=== PATIENT | female | born 1930 | race Caucasian/White ===

== ENCOUNTER 2018-01-16 12:45 | Inpatient (IN) | payer MEDICARE, OTHER ==
[~2018-01-16] VITALS: Ht 162.6 cm; Wt 51.1 kg
[~2018-01-16 12:45] MED LIST: ACET325T9 PO; ACET500T68 PO; ALBU1.25 NEB; BIOF1TAB PO; CALC-326 PO; CARV25TA PO; CLON0.1T PO; DOCU-109 PO; FAMO-63 PO; IBUP200T44 PO; LIDO700A4 TP; LIDODERM PATCH; LINA145C PO; LISI-334 PO; MAG355OR17 PO; MAGN400O7 PO; PROM12.56 PO; PSYL0.5215 PO; PSYL3.4P PO; RANI300T3 PO; RISP0.2519 PO; SERT25TA4 PO; SIMV20TA3 PO; TRIM100T13 PO; VIT1CAPS12 PO; VIT1CAPS17 PO; WARF3TAB50 PO; WARF4TAB64 PO
[2018-01-16 12:46] VITALS: BP 173/84
[2018-01-16] MEDS ORDERED: RISP1TAB3 PO (13:30)
[2018-01-16] MEDS ORDERED: CHOL10003 PO (13:30)
[2018-01-16] MEDS ORDERED: LEVO50TA5 PO (13:30)
[2018-01-16] MEDS ORDERED: WARF-31 PO (13:30)
[2018-01-16] MEDS ORDERED: ONDANSETRON ODT 4 MG TAB.RAPDIS PO PRN (14:00)
[2018-01-16] MEDS ORDERED: ACETAMINOPHEN 500 MG TABLET PO PRN (14:00)
[2018-01-16] MEDS: cefTRIAXone IV Push 1 GM VIAL. IVP SCH (14:26)
[2018-01-16] MEDS: IV NORMAL SALINE 1,000ML 1,000 ML IV SCH (14:26)
[2018-01-16 14:42] LABS: BASO % 1 % (0-3); EOS # 0.1 x10^3/uL (0.0-0.7); EOS % 3 % (0-3); HEMATOCRIT 39.4 % (36.0-47.0); HEMOGLOBIN 13.4 g/dL (12.0-15.5); LYMPH # 0.9 x10^3/uL (1.0-4.8); LYMPH % 22 % (24-48); MEAN CORPUSCULAR HEMOGLOBIN 32 pg (25-35); MEAN CORPUSCULAR HGB CONC 34 g/dL (31-37); MEAN CORPUSCULAR VOLUME 95 fL (79-100); MONO # 0.4 x10^3/uL (0.0-1.1); MONO % 10 % (0-9); NEUT # 2.7 x10^3uL (1.8-7.7); NEUT % 64 % (31-73); PLATELET COUNT 177 x10^3/uL (140-400); RED BLOOD COUNT 4.14 x10^6/uL (3.50-5.40); RED CELL DISTRIBUTION WIDTH 13.6 % (11.5-14.5); WHITE BLOOD COUNT 4.2 x10^3/uL (4.0-11.0)
[2018-01-16] MEDS ORDERED: SENN8.6T99 PO (14:56)
[2018-01-16] MEDS ORDERED: CALC200T3 PO (14:56)
[2018-01-16] MEDS ORDERED: RANI150T21 PO (14:56)
[2018-01-16] MEDS ORDERED: CALC625T PO (14:56)
[2018-01-16 15:16] LABS: ALBUMIN 3.1 g/dL (3.4-5.0); ALBUMIN/GLOBULIN RATIO 0.9 (1.0-1.7); CALCIUM 9.4 mg/dL (8.5-10.1); CREATININE 1.2 mg/dL (0.6-1.0); GFR 42.3; POTASSIUM 4.1 mmol/L (3.5-5.1); TOTAL BILIRUBIN 0.5 mg/dL (0.2-1.0); TOTAL PROTEIN 6.4 g/dL (6.4-8.2)
[2018-01-16] MEDS ORDERED: NON FORMULARY ITEM (Albuterol Sulfate (Albuterol Sulfate Neb Soln) 2.5 MG) NEB PRN (15:45)
[2018-01-16] MEDS ORDERED: IV NORMAL SALINE 1,000ML 1,000 ML IV SCH (15:45)
[2018-01-16] MEDS ORDERED: CALCIUM CARBONATE 500 MG TAB.CHEW PO PRN (15:45)
[2018-01-16] MEDS ORDERED: ACETAMINOPHEN 325 MG TABLET PO PRN (15:45)
[2018-01-16] MEDS ORDERED: MAGNESIUM HYDROXIDE 2,400 MG/30 ML ORAL.SUSP. PO PRN (15:45)
[2018-01-16 15:56] VITALS: BP 145/73
[2018-01-16] MEDS ORDERED: ALBUTEROL SULFATE 2.5 MG/3 ML NEBU. NEB PRN (16:00)
[2018-01-16] MEDS ORDERED: MAG HYDROX/AL HYDROX/SIMETH 30 ML ORAL.SUSP PO PRN (16:00)
[2018-01-16 16:10] LABS: BACTERIA,URINE FEW /HPF (0-FEW); BILIRUBIN,URINE NEG (NEG); CLARITY,URINE HAZY; COLOR,URINE YELLOW; GLUCOSE,URINE NEG (NEG); NITRITE,URINE NEG (NEG); SQUAMOUS EPITHELIAL CELL,UR OCC /LPF; UROBILINOGEN,URINE 0.2 mg/dL (0.2 mg/dL)
--- NOTE | 2018-01-16 16:24 | RAD ---
EXAM: Chest, 2 views. HISTORY: Weakness. Shortness of breath. COMPARISON: 12/11/2013 FINDINGS: Frontal and lateral views of the chest are obtained. There is increased left greater than right basilar opacity likely due to atelectasis. There is no pleural effusion. There is emphysema. There is no pneumothorax. There is a stable prominent cardiac silhouette. There is a chronic severe L1 compression fracture. IMPRESSION: 1. Suspected left lower lobe atelectasis. The possibility of left basilar interstitial infiltrate is not excluded. 2. Stable prominent cardiac silhouette. Electronically signed by: Elis Barton MD (01/16/2018 4:21 PM) [place] [id number]
[2018-01-16] MEDS ORDERED: WARFARIN 5 MG TABLET. PO SCH (16:30)
--- NOTE | 2018-01-16 16:32 | RAD ---
CT of the abdomen and pelvis without contrast, 01/16/2018: HISTORY: Abdominal pain, weakness, UTI Multidetector CT imaging was performed without oral or IV contrast. This limits evaluation of the abdominal structures. There are mild bibasilar interstitial opacities, likely due to scarring. Active infiltrate cannot be excluded. There is a trace amount of pleural fluid in the posterior costophrenic angle on the left. The gallbladder is surgically absent. The unopacified liver shows no abnormality. The hyperenhancing left lobe lesion seen on the previous study is not visible on this noncontrast exam. The common bile duct is dilated, likely secondary to the postcholecystectomy state. A similar appearance was evident on the 12/11/2013 exam. No pancreatic abnormality is seen. The spleen is of normal size. The right kidney is malrotated. It contains a 4.4 cm cyst posteriorly. There are several other small bilateral renal cysts, better delineated on the previous postcontrast study. The kidneys show no evidence of obstruction. Moderate aortoiliac calcific plaquing is present no abdominal or pelvic adenopathy is seen. The uterus appears to be surgically absent. Colonic diverticula are present, most numerous in the sigmoid region. There is a moderate amount stool in the distal colon. No paracolonic inflammatory process is seen. No free air or free fluid is evident in the abdomen or pelvis. There is an old L1 vertebral compression fracture with mild unchanged retropulsion of the posterior superior corner of the fracture vertebral body. Moderate scattered degenerative changes are evident. IMPRESSION: 1. Colonic diverticulosis, most extensive in the sigmoid region. 2. Bilateral renal cysts. 3. Old L1 vertebral compression fracture. PQRS Compliance Statement: One or more of the following individualized dose reduction techniques were utilized for this examination: 1. Automated exposure control 2. Adjustment of the mA and/or kV according to patient size 3. Use of iterative reconstruction technique Electronically signed by: Gallito Silva MD (01/16/2018 4:28 PM) [facility]
--- NOTE | 2018-01-16 16:33 | EKG ---
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
[2018-01-16 19:58] VITALS: BP 125/66
[2018-01-16] MEDS: SIMVASTATIN 20 MG TABLET PO SCH (20:22)
[2018-01-16] MEDS: CALCIUM POLYCARBOPHIL 625 MG TABLET PO SCH (20:22)
[2018-01-16] MEDS: risperiDONE 1 MG TABLET. PO SCH (20:22)
[2018-01-16] MEDS: CARVEDILOL 12.5 MG TABLET PO SCH (20:23)
[2018-01-16] MEDS ORDERED: FAMOTIDINE 20 MG TABLET PO PRN (21:00)
[2018-01-17] VITALS (9 sets, daily range): BP systolic 126–198; BP diastolic 64–98
[2018-01-17] MEDS ORDERED: hydrALAZINE 20 MG/ML VIAL. IV ONE (00:45)
[2018-01-17] MEDS ORDERED: hydrALAZINE 10 MG TABLET PO ONE ×2 (01:30→03:00)
[2018-01-17] MEDS: IV NORMAL SALINE 1,000ML 1,000 ML IV SCH ×2 (03:20→16:40)
[2018-01-17] MEDS: LEVOTHYROXINE 50 MCG TABLET PO SCH (05:47)
[2018-01-17] MEDS ORDERED: cloNIDine TTS-2 1 PATCH PATCH TD ONE (06:00)
[2018-01-17 06:39] LABS: BASO % 1 % (0-3); EOS # 0.1 x10^3/uL (0.0-0.7); EOS % 2 % (0-3); HEMATOCRIT 37.9 % (36.0-47.0); LYMPH # 1.1 x10^3/uL (1.0-4.8); LYMPH % 18 % (24-48); MEAN CORPUSCULAR HEMOGLOBIN 32 pg (25-35); MEAN CORPUSCULAR HGB CONC 34 g/dL (31-37); MEAN CORPUSCULAR VOLUME 94 fL (79-100); MONO # 0.6 x10^3/uL (0.0-1.1); MONO % 9 % (0-9); NEUT # 4.4 x10^3uL (1.8-7.7); NEUT % 71 % (31-73); PLATELET COUNT 181 x10^3/uL (140-400); RED BLOOD COUNT 4.02 x10^6/uL (3.50-5.40); RED CELL DISTRIBUTION WIDTH 13.3 % (11.5-14.5); WHITE BLOOD COUNT 6.2 x10^3/uL (4.0-11.0)
[2018-01-17 06:54] LABS: CALCIUM 8.9 mg/dL (8.5-10.1); GFR 52.2; POTASSIUM 3.8 mmol/L (3.5-5.1)
[2018-01-17] MEDS: CALCIUM CARB/VIT D3 500/200 TABLET PO SCH (08:45)
[2018-01-17] MEDS: LINACLOTIDE 145 MCG CAPSULE. PO SCH (08:45)
[2018-01-17] MEDS: CHOLECALCIFEROL (VITAMIN D3) 1,000 UNIT TABLET PO SCH (08:45)
[2018-01-17] MEDS: MULTIVITAMIN I-VITE TABLET. PO SCH (08:45)
[2018-01-17] MEDS: SENNOSIDES 8.6 MG TABLET PO SCH (08:45)
[2018-01-17] MEDS: CARVEDILOL 12.5 MG TABLET PO SCH (08:50)
[2018-01-17] MEDS ORDERED: cloNIDine TTS-2 1 PATCH PATCH TD SCH (09:00)
--- NOTE | 2018-01-17 09:20 | RAD ---
CT HEAD INDICATION: ALTERED MENTAL STATUS COMPARISON: 12/11/2013 TECHNIQUE: 5 mm contiguous axial images were obtained from the skull base to the vertex in both bone and soft tissue algorithm. Exposure: One or more of the following individualized dose reduction techniques were utilized for this examination: 1. Automated exposure control 2. Adjustment of the mA and/or kV according to patient size 3. Use of iterative reconstruction technique FINDINGS: Moderate bilateral periventricular white matter hypodensities likely chronic small vessel ischemic disease. No evidence of acute intracranial hemorrhage. No extra-axial fluid collections. No mass effect or midline shift. Ventricular size is appropriate. Basal cisterns are patent. No fractures identified.Camacho-white differentiation is preserved.Globes and orbits are within normal limits. Paranasal sinuses and mastoid air cells are clear. IMPRESSION: No acute intracranial findings. Electronically signed by: Dakota Greene MD (01/17/2018 9:16 AM) [id number]
[2018-01-17] MEDS ORDERED: WARFARIN 4 MG TABLET. PO SCH (16:00)
[2018-01-17] MEDS: cefTRIAXone IV Push 1 GM VIAL. IVP SCH (16:51)
--- NOTE | 2018-01-17 19:24 | EKG ---
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
[2018-01-17] MEDS: METOPROLOL TART IMMED RELEASE 25 MG TABLET PO SCH ×3 (19:48→20:30)
[2018-01-17] MEDS: SIMVASTATIN 20 MG TABLET PO SCH (20:30)
[2018-01-17] MEDS: CALCIUM POLYCARBOPHIL 625 MG TABLET PO SCH (20:30)
[2018-01-17] MEDS: risperiDONE 1 MG TABLET. PO SCH (20:30)
[2018-01-17] MEDS ORDERED: METOPROLOL TARTRATE 5 MG/5 ML VIAL. IV ONE ×2 (20:30→22:15)
--- NOTE | 2018-01-18 01:12 | PN ---
DATE: 01/17/2018 SUBJECTIVE: An 87-year-old female who came in with change in mental status, confusion. The patient is resting fairly comfortably, having trouble eating, adjusting her protime as well. However, the patient is still very weak, albumin low at 3.1. The patient's otherwise UA is still pending for evaluation. As far as the culture grows, did have some pus cells in it as well. We will continue on IV antibiotic therapy. PHYSICAL EXAMINATION: GENERAL: Otherwise, the patient is alert, slightly confused, more so than usual. Does not seem to be her usual self, seems to be decreased in mentation. LUNGS: Diminished throughout, but clear. CARDIOVASCULAR: Irregular regular rhythm. ABDOMEN: Soft, nontender. DIAGNOSTIC STUDIES: CT scan unremarkable. PLAN: Continue to monitor the patient, accordingly make further evaluation on her as indicated and we may need a Psych consult as well. FREDDIE REEVES MD DR: AALIYAH/leticia JOB#: [id number] / [id number]
[2018-01-18 05:03] VITALS: BP 182/94
[2018-01-18] MEDS: LEVOTHYROXINE 50 MCG TABLET PO SCH ×2 (06:00→06:09)
[2018-01-18] MEDS: IV NORMAL SALINE 1,000ML 1,000 ML IV SCH (06:00)
[2018-01-18 06:10] VITALS: BP 182/94
[2018-01-18] MEDS: METOPROLOL TART IMMED RELEASE 25 MG TABLET PO SCH (06:10)
[2018-01-18] MEDS: CALCIUM CARB/VIT D3 500/200 TABLET PO SCH (08:00)
[2018-01-18] MEDS: LINACLOTIDE 145 MCG CAPSULE. PO SCH (08:36)
[2018-01-18] MEDS: MULTIVITAMIN I-VITE TABLET. PO SCH (08:36)
[2018-01-18] MEDS: SENNOSIDES 8.6 MG TABLET PO SCH (08:36)
[2018-01-18] MEDS: CHOLECALCIFEROL (VITAMIN D3) 1,000 UNIT TABLET PO SCH ×2 (08:37→08:38)
[2018-01-18] MEDS ORDERED: LACTOBACILLUS RHAMNOSUS GG 1 CAPSULE. PO SCH (09:00)
--- NOTE | 2018-01-18 09:34 | PDOC2 ---
CARDIAC CONSULT DATE OF CONSULT Date Of Consult DATE: 01/18/18 TIME: 09:22 REASON FOR CONSULT Reason for Consult Abnormal ECG, hypertension REFERRING PHYSICIAN Referring Physician Roberto Knox MD HPI History of Present Illness Ms. Tyson is a very pleasant 87-year-old female who is well known to me. I initially had the opportunity to meet the patient in my office earlier this year. She did follow with Dr. Joseluis Horton previously. The patient does have a history of paroxysmal atrial fibrillation which has been managed with a rate control strategy using carvedilol, as well as chronic anticoagulation with warfarin. She does have a history of TIA, essential hypertension, mixed hyperlipidemia, gastroesophageal reflux disease, and hypothyroidism on thyroid replacement therapy. Patient does have chronic kidney disease stage 3. The patient is currently hospitalized after presenting with mental status changes and confusion. She has been relatively anxious during her hospitalization. The patient has been noted to be hypertensive this morning, and was noted to have an abnormal ECG. I reviewed her ECG this morning which demonstrated a run of atrial fibrillation with ventricular rates that were relatively controlled. She has not had any any recent episodes of chest pains or shortness of breath, palpitations, lightheadedness, or syncope. Her workup for ACS with an initial troponin was negative, and ECG has not demonstrated any significant ischemic changes. The patient is otherwise doing well today and has no other particular complaints. PAST MEDICAL HISTORY Cardiovascular: AFIB, HTN, hyperipidemia GI: GERD Psych: Anxiety PAST SURGICAL HISTORY Past Surgical History Noncontributory FAMILY HISTORY Family History Noncontributory SOCIAL HISTORY Smoke: No ALCOHOL: none Drugs: None Lives: Shelter CURRENT MEDICATIONS Current Medications Current Medications Sodium Chloride 1,000 ml @ 75 mls/hr [id number] IV Last administered on at 03:20; Start 01/16/18 at 14:00 Acetaminophen (Tylenol) 500 mg PRN Q6HRS PRN PO PAIN / TEMP; Start 01/16/18 at 14:00; Stop 01/16/18 at 15:40; Status DC Ceftriaxone Sodium 1 gm/ Sodium Chloride 50 ml @ 100 mls/hr Q24H IV ; Start at 14:00; Status UNV Ondansetron HCl (Zofran Odt) 4 mg PRN Q8HRS PRN PO NAUSEA/VOMITING; Start 01/16 at 14:00 Ceftriaxone Sodium (Rocephin) 1 gm Q24H IVP Last administered on 01/17/18at 16: 51; Start 01/16/18 at 15:00 Acetaminophen (Tylenol) 650 mg PRN Q6HRS PRN PO PAIN; Start 01/16/18 at 15:45 Calcium Carbonate/ Glycine (Tums) 500 mg PRN Q2HR PRN PO ACID INDIGESTION; Start 01/16/18 at 15:45 Calcium Polycarbophil (Fibercon) 625 mg HS PO Last administered on 01/16/18at 20 :22; Start 01/16/18 at 21:00 Vitamin D (Vitamin D3) 1,000 unit DAILY PO Last administered on 01/17/18at 08:45 ; Start 01/17/18 at 09:00 Linaclotide (Linzess) 145 mcg DAILY PO Last administered on 01/17/18at 08:45; Start 01/17/18 at 09:00 Magnesium Hydroxide (Milk Of Magnesia) 2,400 mg PRN DAILY PRN PO CONSTIPATION; Start 01/16/18 at 15:45 Non-Formulary Medication (Albuterol Sulfate (Albuterol Sulfate Neb Soln)) 2.5 mg PRN Q4HRS PRN NEB SHORTNESS OF BREATH; Start 01/16/18 at 15:45; Status UNV Calcium/Vitamin D (Oscal D 500mg/ 200uts) 1 tab [id number] PO Last administered on 01/17/18at 08:45; Start 01/17/18 at 08:00 Carvedilol (Coreg) 25 mg BID@1300,2100 PO Last administered on 01/17/18at 08:50 ; Start 01/16/18 at 21:00; Stop 01/17/18 at 19:29; Status DC Levothyroxine Sodium (Synthroid) 50 mcg DAILY06 PO Last administered on at 05:47; Start 01/17/18 at 06:00 Al Hydroxide/Mg Hydroxide (Mylanta Plus Xs) 15 ml PRN AFTMEALHC PRN PO DYSPEPSIA; Start 01/16/18 at 16:00 Famotidine (Pepcid) 20 mg PRN BID PRN PO INDIGESTION; Start 01/16/18 at 21:00 Risperidone (RisperDAL) 1 mg QHS PO Last administered on 01/16/18at 20:22; Start 01/16/18 at 21:00 Sennosides (Senna) 8.6 mg DAILY PO Last administered on 01/17/18at 08:45; Start 01/17/18 at 09:00 Simvastatin (Zocor) 20 mg HS PO Last administered on 01/16/18at 20:22; Start at 21:00 Multivitamins/ Minerals (I-Jimbo) 1 tab DAILY PO Last administered on 01/17/18at 08:45; Start 01/17/18 at 09:00 Warfarin Sodium (Coumadin) 5 mg DAILY16 PO Last administered on 01/16/18at 20:23 ; Start 01/16/18 at 16:30; Stop 01/17/18 at 13:01; Status DC Sodium Chloride 1,000 ml @ 75 mls/hr [id number] IV ; Start 01/16/18 at 15:45; Status Cancel Albuterol Sulfate (Ventolin) 2.5 mg PRN Q4HRS PRN NEB SHORTNESS OF BREATH; Start 01/16/18 at 16:00 Warfarin Sodium (Coumadin Per Physician) 1 each PRN DAILY PRN MC SEE COMMENTS; Start 01/16/18 at 16:30 Hydralazine HCl (Apresoline) 20 mg 1X ONCE IV ; Start 01/17/18 at 00:45; Stop 01/17/18 at 00:46; Status DC Hydralazine HCl (Apresoline) 20 mg 1X ONCE PO Last administered on 01/17/18at 01:25; Start 01/17/18 at 01:30; Stop 01/17/18 at 01:31; Status DC Hydralazine HCl (Apresoline) 20 mg 1X ONCE PO Last administered on 01/17/18at 03:04; Start 01/17/18 at 03:00; Stop 01/17/18 at 03:01; Status DC Clonidine HCl (Catapres Tts-2) 1 patch WEEKLY TD ; Start 01/17/18 at 09:00; Stop 01/17/18 at 09:00; Status DC Clonidine HCl (Catapres Tts-2) 1 patch WEEKLY TD ; Start 01/24/18 at 09:00 Clonidine HCl (Catapres Tts-2) 1 patch ONCE ONCE TD Last administered on at 06:07; Start 01/17/18 at 06:00; Stop 01/17/18 at 06:01; Status DC Warfarin Sodium (Coumadin) 4 mg DAILY16 PO Last administered on 01/17/18at 16:57 ; Start 01/17/18 at 16:00 Metoprolol Tartrate (Lopressor) 25 mg BID PO Last administered on 01/18/18at 06: 10; Start 01/17/18 at 19:30 Metoprolol Tartrate (Lopressor Vial) 5 mg 1X ONCE IV Last administered on 01/17at 20:40; Start 01/17/18 at 20:30; Stop 01/17/18 at 20:35; Status DC Metoprolol Tartrate (Lopressor Vial) 5 mg 1X ONCE IV Last administered on 01/17at 22:19; Start 01/17/18 at 22:15; Stop 01/17/18 at 22:17; Status DC Lactobacillus Rhamnosus (Culturelle) 1 cap BID PO ; Start 01/18/18 at 09:00 Active Scripts Active Reported Zantac (Ranitidine Hcl) 150 Mg Tablet 1 Tab PO BID PRN LAST DOSE GIVEN: DATE: TIME: NEXT DOSE DUE: DATE: TIME: Tums (Calcium Carbonate) 200 Mg Tab.chew 200 Mg PO Q2HR PRN LAST DOSE GIVEN: DATE: TIME: NEXT DOSE DUE: DATE: TIME: Senokot (Sennosides) 8.6 Mg Tablet 1 Tab PO DAILY LAST DOSE GIVEN: DATE: TIME: NEXT DOSE DUE: DATE: TIME: Fibercon (Calcium Polycarbophil) 625 Mg Tablet 625 Mg PO HS LAST DOSE GIVEN: DATE: TIME: NEXT DOSE DUE: DATE: TIME: Warfarin Sodium 5 Mg Tablet 1 Tab PO DAILY LAST DOSE GIVEN: DATE: TIME: NEXT DOSE DUE: DATE: TIME: Risperidone 1 Mg Tablet 1 Tab PO QHS LAST DOSE GIVEN: DATE: TIME: NEXT DOSE DUE: DATE: TIME: Vitamin D3 (Cholecalciferol (Vitamin D3)) 1,000 Unit Tablet 1 Tab PO DAILY LAST DOSE GIVEN: DATE: TIME: NEXT DOSE DUE: DATE: TIME: Levothyroxine Sodium 50 Mcg Tablet 1 Tab PO DAILY06 LAST DOSE GIVEN: DATE: TIME: NEXT DOSE DUE: DATE: TIME: Preservision Areds Softgel (Vit A/Vit C/Vit E/Zinc/Copper) 1 Each Capsule 1 Each PO DAILY LAST DOSE GIVEN: DATE: TIME: NEXT DOSE DUE: DATE: TIME: Advanced Antacid Liquid (Mag Hydrox/Al Hydrox/Simeth) 355 Ml Oral.susp 15 Ml PO PRN AFTMEALHC PRN LAST DOSE GIVEN: DATE: TIME: NEXT DOSE DUE: DATE: TIME: Tylenol (Acetaminophen) 325 Mg Tablet 650 Mg PO Q6HRS PRN LAST DOSE GIVEN: DATE: TIME: NEXT DOSE DUE: DATE: TIME: Milk Of Magnesia (Magnesium Hydroxide) 400 Mg/5 Ml Oral.susp 2,400 Mg PO DAILY PRN LAST DOSE GIVEN: DATE: TIME: NEXT DOSE DUE: DATE: TIME: Linzess (Linaclotide) 145 Mcg Capsule 145 Mcg PO DAILY LAST DOSE GIVEN: DATE: TIME: NEXT DOSE DUE: DATE: TIME: Simvastatin 20 Mg Tablet 20 Mg PO HS LAST DOSE GIVEN: DATE: TIME: NEXT DOSE DUE: DATE: TIME: Albuterol Sulfate Neb Soln (Albuterol Sulfate) 1.25 Mg/3 Ml Vial.neb 2.5 Mg NEB PRN Q4HRS PRN LAST DOSE GIVEN: DATE: TIME: NEXT DOSE DUE: DATE: TIME: Coreg (Carvedilol) 25 Mg Tablet 25 Mg PO BID AT 1300 AND 2100 LAST DOSE GIVEN: DATE: TIME: NEXT DOSE DUE: DATE: TIME: Oyster Shell Calcium + D Tab (Calcium Carbonate/Vitamin D3) 1 Each Tablet 1 Each PO DAILY LAST DOSE GIVEN: DATE: TIME: NEXT DOSE DUE: DATE: TIME: ALLERGIES Allergies: Coded Allergies: alendronate sodium (Verified Allergy, Unknown, 12/17/13) fentanyl (Verified Allergy, Unknown, 12/17/13) ibandronate sodium (Verified Allergy, Unknown, 12/17/13) risedronate sodium (Verified Allergy, Unknown, 12/17/13) sulfamethoxazole (Verified Allergy, Unknown, 12/03/13) ROS Review of Systems Pt is relatively confused, not able to provide appropriate ROS PHYSICAL EXAM General: Alert, Cooperative, No acute distress, Other (not oriented to place or time) HEENT: Atraumatic, PERRLA, EOMI Lungs: Clear to auscultation, Normal air movement Heart: Regular rate, Normal S1, Normal S2, No murmurs Abdomen: Normal bowel sounds, Soft, No tenderness Extremities: No clubbing, No cyanosis, No edema, Normal pulses Skin: No rashes Neuro: Normal tone Psych/Mental Status: Other (dementia) VITALS Vital Signs Vital Signs Date Time Temp Pulse Resp B/P (MAP) Pulse Ox O2 Delivery O2 Flow Rate FiO2 01/18/18 06:10 71 182/94 01/18/18 05:03 98.0 18 97 Room Air LABS LABS Laboratory Tests Test 01/16/18 14:30 01/16/18 14:35 01/16/18 15:43 01/16/18 16:10 White Blood Count 4.2 x10^3/uL (4.0-11.0) Red Blood Count 4.14 x10^6/uL (3.50-5.40) Hemoglobin 13.4 g/dL (12.0-15.5) Hematocrit 39.4 % (36.0-47.0) Mean Corpuscular Volume 95 fL (79-100) Mean Corpuscular Hemoglobin 32 pg (25-35) Mean Corpuscular Hemoglobin Concent 34 g/dL (31-37) Red Cell Distribution Width 13.6 % (11.5-14.5) Platelet Count 177 x10^3/uL (140-400) Neutrophils (%) (Auto) 64 % (31-73) Lymphocytes (%) (Auto) 22 % (24-48) Monocytes (%) (Auto) 10 % (0-9) Eosinophils (%) (Auto) 3 % (0-3) Basophils (%) (Auto) 1 % (0-3) Neutrophils # (Auto) 2.7 x10^3uL (1.8-7.7) Lymphocytes # (Auto) 0.9 x10^3/uL (1.0-4.8) Monocytes # (Auto) 0.4 x10^3/uL (0.0-1.1) Eosinophils # (Auto) 0.1 x10^3/uL (0.0-0.7) Basophils # (Auto) 0.0 x10^3/uL (0.0-0.2) Prothrombin Time 28.7 SEC (9.4-11.4) Prothromb Time International Ratio 3.0 (0.9-1.1) Sodium Level 134 mmol/L (136-145) Potassium Level 4.1 mmol/L (3.5-5.1) Chloride Level 101 mmol/L (98-107) Carbon Dioxide Level 31 mmol/L (21-32) Anion Gap 2 (6-14) Blood Urea Nitrogen 15 mg/dL (7-20) Creatinine 1.2 mg/dL (0.6-1.0) Estimated GFR (Cockcroft-Gault) 42.3 BUN/Creatinine Ratio 13 (6-20) Glucose Level 115 mg/dL (70-99) Calcium Level 9.4 mg/dL (8.5-10.1) Total Bilirubin 0.5 mg/dL (0.2-1.0) Aspartate Amino Transf (AST/SGOT) 23 U/L (15-37) Alanine Aminotransferase (ALT/SGPT) 17 U/L (14-59) Alkaline Phosphatase 58 U/L (46-116) Total Protein 6.4 g/dL (6.4-8.2) Albumin 3.1 g/dL (3.4-5.0) Albumin/Globulin Ratio 0.9 (1.0-1.7) D-Dimer (Frida) 0.33 mg/L (0.00-0.50) Creatine Kinase 60 U/L (26-192) Troponin I Quantitative < 0.017 ng/mL (0-0.055) Urine Collection Type Unknown Urine Color Yellow Urine Clarity Hazy Urine pH 6.5 Urine Specific [place] 1.010 Urine Protein Neg (NEG-TRACE) Urine Glucose (UA) Neg mg/dL (NEG) Urine Ketones (Stick) Neg mg/dL (NEG) Urine Blood Trace (NEG) Urine Nitrite Neg (NEG) Urine Bilirubin Neg (NEG) Urine Urobilinogen Dipstick 0.2 mg/dL (0.2 mg/dL) Urine Leukocyte Esterase Trace (NEG) Urine RBC 3-5 /HPF (0-2) Urine WBC 1-4 /HPF (0-4) Urine Squamous Epithelial Cells Occ /LPF Urine Bacteria Few /HPF (0-FEW) Urine Mucus Slight /LPF Lactic Acid Level 0.7 mmol/L (0.4-2.0) Test 01/17/18 06:20 White Blood Count 6.2 x10^3/uL (4.0-11.0) Red Blood Count 4.02 x10^6/uL (3.50-5.40) Hemoglobin 13.0 g/dL (12.0-15.5) Hematocrit 37.9 % (36.0-47.0) Mean Corpuscular Volume 94 fL (79-100) Mean Corpuscular Hemoglobin 32 pg (25-35) Mean Corpuscular Hemoglobin Concent 34 g/dL (31-37) Red Cell Distribution Width 13.3 % (11.5-14.5) Platelet Count 181 x10^3/uL (140-400) Neutrophils (%) (Auto) 71 % (31-73) Lymphocytes (%) (Auto) 18 % (24-48) Monocytes (%) (Auto) 9 % (0-9) Eosinophils (%) (Auto) 2 % (0-3) Basophils (%) (Auto) 1 % (0-3) Neutrophils # (Auto) 4.4 x10^3uL (1.8-7.7) Lymphocytes # (Auto) 1.1 x10^3/uL (1.0-4.8) Monocytes # (Auto) 0.6 x10^3/uL (0.0-1.1) Eosinophils # (Auto) 0.1 x10^3/uL (0.0-0.7) Basophils # (Auto) 0.0 x10^3/uL (0.0-0.2) Prothrombin Time 30.6 SEC (9.4-11.4) Prothromb Time International Ratio 3.2 (0.9-1.1) Sodium Level 134 mmol/L (136-145) Potassium Level 3.8 mmol/L (3.5-5.1) Chloride Level 103 mmol/L (98-107) Carbon Dioxide Level 25 mmol/L (21-32) Anion Gap 6 (6-14) Blood Urea Nitrogen 17 mg/dL (7-20) Creatinine 1.0 mg/dL (0.6-1.0) Estimated GFR (Cockcroft-Gault) 52.2 Glucose Level 104 mg/dL (70-99) Calcium Level 8.9 mg/dL (8.5-10.1) EKG EKG ECG yesterday demonstrated atrial fibrillation with controlled ventricular rates ASSESSMENT/PLAN Assessment/Plan 1. Paroxysmal atrial fibrillation 2. Essential hypertension 3. History of TIA 4. Hypothyroidism 5. GERD 6. Abnormal ECG 7. Confusion/Anxiety Ms. Tyson is currently hospitalized after presenting with symptoms of confusion and anxiety. Her work up has been unremarkable. Her initial troponin was negative, and her ECG demonstrated no significant ischemic changes. The patient has not had any anginal symptoms, and does appear to be mostly euvolemic on examination. Incidentally, the patient was noted to be in atrial fibrillation yesterday as documented on ECG. She was apparently asymptomatic, and subsequently converted spontaneously. The patient has been rather confused and anxious, and her blood pressure is noted to be moderately elevated this morning. At this point in time, I think it would be reasonable to transition the patient back to her home regimen of carvedilol 25 mg BID for better blood pressure and rate control. She may remain on chronic anticoagulation with warfarin for stroke prophylaxis, but this may need to discussed in the future given her underlying dementia and risk for falls/bleeds. We can obviously make further titrations and adjustments to her regimen in the outpatient setting. I do not think any further cardiac diagnostic testing is necessary in the inpatient setting. The patient may be discharged back to her fdc from cardiac standpoint, and I will have her follow up in our office in the coming weeks. Thank you for allowing me to participate in the care of your patient. Should you have any further questions, please do not hesitate to contact me. SINAN REBOLLEDO MD Jan 18, 2018 09:34
[2018-01-18] MEDS ORDERED: CLON1PAT2 TD (10:12)
[2018-01-18] MEDS ORDERED: WARF4TAB68 PO (10:12)
[2018-01-18 10:55] VITALS: BP 122/72
[2018-01-24] MEDS ORDERED: cloNIDine TTS-2 1 PATCH PATCH TD SCH (09:00)
--- NOTE | 2018-01-25 11:32 | DS ---
DATE OF DISCHARGE: 01/18/2018 HOSPITAL COURSE: This is an 87-year-old female came in with change in mental status, confusion. The patient is seen also for her atrial fibrillation. Albumin was low. She was extremely weak, sometimes even disoriented. The patient's urine cultures were negative. Her labs are basically not too abnormal except for her low albumin. The patient made good progress during the rest of her hospitalization. Head CT was entertained and there were no acute findings there. The patient made good progress. She was more or less stable. She demanded to be discharged home. She was discharged home. See MRAD. Decreased activity. IMPRESSION: Change in mental status, metabolic encephalopathy, urgent hypertension. The patient will be discharged home, followed up as an outpatient. FREDDIE REEVES MD DR: AALIYAH/leticia JOB#: [id number] / [id number]
== END 2018-01-18 11:18 | disposition home health service (06) | DRG 308 ==
LOC: 1 SOUTH 12:45
PROVIDERS: ADMIT Family Medicine; ATTEND Family Medicine
DX: I48.0 Paroxysmal atrial fibrillation (principal); G93.41 Metabolic encephalopathy; F41.9 Anxiety disorder, unspecified; E03.9 Hypothyroidism, unspecified; E78.2 Mixed hyperlipidemia; F03.90 Unspecified dementia, unspecified severity, without behavioral disturbance, psychotic disturbance, mood disturbance, and anxiety; K21.9 Gastro-esophageal reflux disease without esophagitis; I12.9 Hypertensive chronic kidney disease with stage 1 through stage 4 chronic kidney disease, or unspecified chronic kidney disease; N18.3 Chronic kidney disease, stage 3 (moderate); Z79.01 Long term (current) use of anticoagulants; Z86.73 Personal history of transient ischemic attack (TIA), and cerebral infarction without residual deficits; Z88.8 Allergy status to other drugs, medicaments and biological substances
CPT/HCPCS: 36415; 70450; 71046; 74176; 80048; 80053; 81001; 82550; 82607; 83605; 84443; 84484; 85025; 85379; 85610; 87086; 93005; J0696; J3490; J7030